=== PATIENT | male | born 1985 | race Caucasian/White ===

== ENCOUNTER 2019-02-14 20:37 | Emergency (ER) | payer OTHER ==
[~2019-02-14] VITALS: Ht 182.9 cm; Wt 131.5 kg
[2019-02-14] MEDS ORDERED: CLOMIPHENE CITR50 MG PO (20:50)
[2019-02-14 22:05] VITALS: BP 151/68
--- NOTE | 2019-02-14 22:17 | NUR ---
OFFERED CRUTCHES, PT DECLINED, 4 INCH GRETCHEN APPLIED, AWAKE LAERT SKIN W/D RESP NONLAB, NAD NOTED.
== END 2019-02-14 22:18 | disposition home or self-care (01) ==
LOC: ER 20:37
DX: M25.572 Pain in left ankle and joints of left foot (principal)
CPT/HCPCS: 93971; 99283